=== PATIENT | female | born 1955 | race Caucasian/White ===

== ENCOUNTER 2017-01-16 20:12 | Emergency (ER) | payer BC ==
[~2017-01-16] VITALS: Ht 157.5 cm; Wt 74.2 kg
[~2017-01-16 20:12] MED LIST: CALCIUM + D3 E1 EACH PO; LEVOTHYROXINE88 MCG PO; MOTRIN600 MG PO; NORCO 5/3251 TABLET PO; NORVASC5 MG PO; PREDNISONE20 MG PO; PRILOSEC OTC20 MG PO; SIMVASTATIN20 MG PO; TUMS500 MG PO; VALIUM2 MG PO; VITAMIN B-6100 MG PO
[2017-01-16 21:19] LABS: HEMATOCRIT 43.6 % (36.0-46.0); MCH 27.8 PG (29.0-34.0); MCHC 33.3 G/DL (30.0-36.0); MCV 83.7 FL (83-99); MEAN PLAT.VOLUME 9.2 uM^3 (9.5-12.4); PLATELET COUNT 277 K/uL (156-360); RBC DIS.WIDTH-CV 13.7 % (11.8-14.6); RED BLOOD COUNT 5.21 M/uL (3.80-5.20); WHITE BLOOD COUNT 7.7 K/uL (4.1-10.2)
[2017-01-16 21:42] LABS: CHLORIDE 104 mEq/L (99-109); POTASSIUM 4.3 mEq/L (3.7-5.4); SODIUM 142 mEq/L (136-147)
[2017-01-16 21:44] LABS: GLUCOSE 102 mg/dL (70-99)
[2017-01-16 21:45] LABS: ANION GAP 14 MEQ/L (2-14); TROP-I INTERPRETATION NEGATIVE; TROPONIN-I < 0.01 ng/mL (0.0-0.30)
[2017-01-16 21:48] LABS: GFR ESTIMATE (CALCULATED) > 59 mL/min/
[2017-01-16 21:49] LABS: UREA NITROGEN (BUN) 16 mg/dL (9-23)
[2017-01-17 00:20] LABS: TROP-I INTERPRETATION NEGATIVE; TROPONIN-I 0.01 ng/mL (0.0-0.30)
[2017-01-17] MEDS ORDERED: PROTONIX40 MG PO (00:22)
[2017-01-17 00:30] VITALS: BP 151/91
== END 2017-01-17 00:32 | disposition home or self-care (01) ==
LOC: EME 20:12
PROVIDERS: Physician Assistant
DX: J02.9 Acute pharyngitis, unspecified (principal); R13.10 Dysphagia, unspecified; E78.5 Hyperlipidemia, unspecified; I10 Essential (primary) hypertension; E03.9 Hypothyroidism, unspecified
CPT/HCPCS: 70491; 71020; 80048; 84484; 85027; 87651 90; 93005; 99281; 99285; C9113; J1885; J2405; J7030

== ENCOUNTER 2018-06-12 18:15 | Emergency (ER) | payer BC ==
[~2018-06-12] VITALS: Ht 157.5 cm; Wt 73.0 kg
[~2018-06-12 18:15] MED LIST changes: +PROTONIX40 MG PO
[2018-06-12 18:50] LABS: HEMOGLOBIN 14.2 G/DL (11.9-15.5); MCH 29.5 PG (29.0-34.0); MCHC 34.6 G/DL (30.0-36.0); MCV 85.2 FL (83-99); PLATELET COUNT 239 K/uL (156-360); RBC DIS.WIDTH-CV 13.9 % (11.8-14.6); RED BLOOD COUNT 4.81 M/uL (3.80-5.20); WHITE BLOOD COUNT 9.8 K/uL (4.1-10.2)
[2018-06-12 18:58] LABS: CHLORIDE 104 mEq/L (99-109); POTASSIUM 3.7 mEq/L (3.7-5.4); SODIUM 139 mEq/L (136-147)
[2018-06-12 18:59] LABS: APPEARANCE CLEAR ((CLEAR)); BILIRUBIN NEGATIVE; BLOOD NEGATIVE; COLOR YELLOW ((YELLOW)); GLUCOSE (STRIP) NEGATIVE; KETONES NEGATIVE; LEUKOCYTES NEGATIVE; NITRITE NEGATIVE; PROTEIN (STRIP) NEGATIVE; SPECIFIC GRAVITY 1.015 (1.000-1.030); UCUL ADDED? NO; UROBILINOGEN 0.2 MG/DL (0.2-1.0)
[2018-06-12 19:00] LABS: GLUCOSE 121 mg/dL (70-99); TOTAL PROTEIN 8.7 g/dL (6.4-8.3)
[2018-06-12 19:02] LABS: TOTAL BILIRUBIN 0.5 mg/dL (0.0-1.0)
[2018-06-12 19:04] LABS: ALKALINE PHOSPHATASE 77 IU/L (3-129); CREATININE 1.2 mg/dL (0.6-1.3); GFR ESTIMATE (CALCULATED) 48 mL/min/
[2018-06-12 19:05] LABS: UREA NITROGEN (BUN) 19 mg/dL (9-23)
[2018-06-12 19:06] LABS: AST (GOT) 34 IU/L (2-34)
[2018-06-12 19:07] LABS: ALT (GPT) 28 IU/L (3-49)
[2018-06-13] MEDS ORDERED: ZOFRAN ODT4 MG PO (00:33)
[2018-06-13] MEDS ORDERED: FLAGYL500 MG PO (00:33)
[2018-06-13] MEDS ORDERED: PERCOCET 5/31 TABLET PO (00:33)
[2018-06-13] MEDS ORDERED: CIPRO500 MG PO (00:33)
[2018-06-13 02:14] VITALS: BP 140/74
== END 2018-06-13 02:18 | disposition home or self-care (01) ==
LOC: EME 18:15
DX: K52.9 Noninfective gastroenteritis and colitis, unspecified (principal); I10 Essential (primary) hypertension; E78.5 Hyperlipidemia, unspecified; E03.9 Hypothyroidism, unspecified; F41.9 Anxiety disorder, unspecified; Z88.5 Allergy status to narcotic agent
CPT/HCPCS: 74177; 80053; 81003; 85027; 99281; 99285; J0744; J2405; J3010; J7030; S0030